=== PATIENT | female | born 1985 | race Two or more races ===

== ENCOUNTER 2022-05-11 08:26 | Outpatient (CLI) | payer OTHER | END 2022-05-11 23:59 | disposition home or self-care (01) | LOC: LAB.N 08:26 | PROVIDERS: ATTEND Family Medicine | DX: R30.0 Dysuria (principal) | CPT/HCPCS: 87086; 87181 ==

== ENCOUNTER 2023-05-15 08:00 | Outpatient (CLI) | payer OTHER | END 2023-05-15 23:59 | disposition home or self-care (01) | LOC: LAB.N 08:00 | PROVIDERS: ATTEND Family Medicine | DX: N39.0 Urinary tract infection, site not specified (principal) | CPT/HCPCS: 87077; 87086; 87181 ==